=== PATIENT | male | born 1960 | race Caucasian/White ===

== ENCOUNTER 2017-03-11 07:06 | Emergency (ER) | payer OTHER ==
[2017-03-11] MEDS ORDERED: KETOROLAC TROMETHAMINE 30 MG/1 ML VIAL IVPUSH ONE (07:10)
[2017-03-11] MEDS ORDERED: SODIUM CHLORIDE 1,000 ML IV STA (07:10)
--- NOTE | 2017-03-11 07:14 | PDOC ---
History of Present Illness - General Chief Complaint: Pain, Acute Stated Complaint: R SIDED BACK AND FLANK PAIN Time Seen by Provider: 03/11/17 07:08 History Source: Patient, Significant Other Exam Limitations: No Limitations - History of Present Illness Initial Comments: 56 yo M history kidney stones presents with abrupt onset severe R flank pain. Pain woke him from sleep. Pain is 10/10, colicky, sharp, intermittent. Currently in 10/10 pain, having difficulty speaking due to pain (significant other gave history). Worse than prior kidney stone. Past History - Past Medical History Allergies/Adverse Reactions: Allergies Allergy/AdvReac Type Severity Reaction Status Date / Time No Known Allergies Allergy Verified 03/11/17 07:07 Home Medications: Ambulatory Orders Ibuprofen [Motrin -] 600 mg PO TID PRN #21 tablet 03/11/17 Oxycodone HCl/Acetaminophen [Percocet 5-325 mg Tablet] 1 - 2 tab PO Q6H PRN #20 tablet MDD 8 tabs 03/11/17 - Immunization History Td Vaccination: Yes - Psycho/Social/Smoking Cessation Hx Anxiety: No Suicidal Ideation: No Smoking Status: No Smoking History: Never smoked Number of Cigarettes Smoked Daily: 0 Cigars Per Day: 0 Review of Systems - Review of Systems Able to Perform ROS?: Yes Comments:: GENERAL/CONSTITUTIONAL: No fever or chills. No weakness. HEAD, EYES, EARS, NOSE AND THROAT: No change in vision. No ear pain or discharge. No sore throat. CARDIOVASCULAR: No chest pain or shortness of breath. RESPIRATORY: No cough, wheezing, or hemoptysis. GASTROINTESTINAL: No nausea, vomiting, diarrhea or constipation. GENITOURINARY: No dysuria, frequency, or change in urination. MUSCULOSKELETAL: No joint or muscle swelling or pain. No neck pain. +R low back/ flank pain. SKIN: No rash NEUROLOGIC: No headache, vertigo, loss of consciousness, or change in strength/ sensation. ENDOCRINE: No increased thirst. No abnormal weight change. HEMATOLOGIC/LYMPHATIC: No anemia, easy bleeding, or history of blood clots. ALLERGIC/IMMUNOLOGIC: No hives or skin allergy. *Physical Exam - Physical Exam Comments: GENERAL: Awake, alert, in obvious pain. Doubled over. HEAD: No signs of trauma EYES: PERRLA, EOMI, sclera anicteric, conjunctiva clear ENT: Auricles normal inspection, hearing grossly normal, nares patent, oropharynx clear without exudates. Moist mucosa NECK: Normal ROM, supple, no lymphadenopathy, JVD, or masses LUNGS: Breath sounds equal, clear to auscultation bilaterally. No wheezes, and no crackles HEART: Regular rate and rhythm, normal S1 and S2, no murmurs, rubs or gallops ABDOMEN: Soft, nontender, normoactive bowel sounds. No guarding, no rebound. No masses. No CVAT. EXTREMITIES: Normal range of motion, no edema. No clubbing or cyanosis. No cords , erythema, or tenderness NEUROLOGICAL: Cranial nerves II through XII grossly intact. Normal speech, normal gait SKIN: Warm, Dry, normal turgor, no rashes or lesions noted. ED Treatment Course - LABORATORY CBC & Chemistry Diagram: 03/11/17 07:24 03/11/17 07:24 Medical Decision Making - Medical Decision Making 03/11/17 09:14 Pt comfortable in bed, tolerating liquids PO. CT results reviewed with him. While he is much more comfortable at present, I am concerned that the pain may return, and he required a significant amount of pain medication. Will observe in ED for 1-2 hours. If pain does not return, will DC home. If it does, will admit. 03/11/17 10:22 Offered PO challenge. Will cont to monitor. 03/11/17 10:41 Tolerated crackers and water PO. Will DC home. Counseled him that the pain may return, and if so, to return to the ED. *DC/Admit/Observation/Transfer Diagnosis at time of Disposition: Kidney stone - Discharge Dispostion Disposition: HOME Condition at time of disposition: Stable Admit: No - Prescriptions Prescriptions: Ibuprofen [Motrin -] 600 mg PO TID PRN #21 tablet PRN Reason: Pain Oxycodone HCl/Acetaminophen [Percocet 5-325 mg Tablet] 1 - 2 tab PO Q6H PRN #20 tablet MDD 8 tabs PRN Reason: Severe Pain - Referrals Referrals: Jax Pruett MD [Staff Physician] - - Patient Instructions Printed Discharge Instructions: DI for Kidney Stones
[2017-03-11] MEDS ORDERED: ONDANSETRON 4 MG/2 ML VIAL IVPUSH ONE ×2 (07:15→07:44)
[2017-03-11] MEDS ORDERED: morphine CARPU-JECT 4 MG/1 ML DISP.SYRIN IVPUSH ONE ×2 (07:15→07:44)
[2017-03-11 07:22] VITALS: BMI 21.5
[2017-03-11 07:33] VITALS: TEMP 97.6
[2017-03-11] MEDS ORDERED: morphine CARPU-JECT 4 MG/1 ML DISP.SYRIN ONE (07:42)
[2017-03-11 08:22] LABS: ALBUMIN 4.3 g/dl (3.4-5.0); ANION GAP 7 (8-16); BILIRUBIN,TOTAL 0.7 mg/dL (0.2-1.0); CALCIUM 8.8 mg/dL (8.5-10.1); CO2 27 mmol/L (21-32); CREATININE 0.9 mg/dL (0.7-1.3); GLUCOSE,RANDOM 103 mg/dL (74-106); SGOT/AST 17 U/L (15-37); SGPT/ALT 27 U/L (12-78); TOT PROT 7.1 g/dl (6.4-8.2)
[2017-03-11 08:23] LABS: ALK PHOS 57 U/L (45-117)
[2017-03-11 08:24] LABS: PH,URINE 7.5 (4.5-8); URINE APPEARANCE Slightly; URINE BILIRUBIN Negative (NEGATIVE); URINE GLUCOSE (UA) Negative (NEGATIVE); URINE KETONE 2+ (NEGATIVE); URINE LEUK ESTERASE Negative (NEGATIVE); URINE NITRITE Negative (NEGATIVE); URINE UROBILINOGEN 0.2 (0.2-1.0)
[2017-03-11 08:25] LABS: URINE BLOOD 3+ (NEGATIVE); URINE COLOR YELLOW; URINE PROTEIN 1+ (NEGATIVE)
[2017-03-11 08:28] VITALS: PULSE 50
[2017-03-11 08:36] LABS: BASOPHIL 0.3 % (0-2.0); EOSINOPHIL 1.4 % (0-4.5); MCH 33.3 pg (25.7-33.7); MCHC 35.2 g/dl (32.0-35.9); MEAN CELL VOLUME 94.7 fl (80-96); MEAN PLT VOLUME 7.7 fl (7.5-11.1); NEUTROPHILS 54.1 % (42.8-82.8); PLATELET COUNT 203 K/MM3 (134-434); RDW 13.1 % (11.9-15.9); WHITE BLOOD COUNT 5.1 K/mm3 (4.0-10.0)
[2017-03-11 08:46] LABS: URINE BACTERIA NONE SEEN /hpf (NEGATIVE); URINE RBC 20-30 /hpf (0-3); URINE WBC 0-2 (3-5)
[2017-03-11 10:30] VITALS: BP 128/79
== END 2017-03-11 11:00 | disposition home or self-care (01) ==
LOC: FER 07:06
PROC: 3E0333Z Introduction of Anti-inflammatory into Peripheral Vein, Percutaneous Approach (ICD-10-PCS; principal; 2017-03-11)
PROC: 3E033NZ Introduction of Analgesics, Hypnotics, Sedatives into Peripheral Vein, Percutaneous Approach (ICD-10-PCS; 2017-03-11)
PROC: 3E033GC Introduction of Other Therapeutic Substance into Peripheral Vein, Percutaneous Approach (ICD-10-PCS; 2017-03-11)
PROC: 3E0337Z Introduction of Electrolytic and Water Balance Substance into Peripheral Vein, Percutaneous Approach (ICD-10-PCS; 2017-03-11)
DX: N23 Unspecified renal colic (principal)
CPT/HCPCS: 36415; 74176; 80053; 81003; 81015; 85025; 99285-25

== ENCOUNTER 2017-04-06 17:20 | Emergency (ER) | payer OTHER ==
[2017-04-06 17:31] VITALS: BP 122/80; PULSE 56; TEMP 98.1; BMI 22.1
--- NOTE | 2017-04-06 17:35 | PDOC ---
History of Present Illness - History of Present Illness Initial Comments: 04/06/17 17:55 56 M with a PMHx of kidney stones presents to the ED with sharp right flank pain and RLQ pain. Patient reports he has multiple kidney stones, and he had lithotripsy done yesterday. Prior to the procedure, he would experience right sided pain every 3 days. Since yesterday after the procedure he has had intermittent episodes of severe, sharp pain in the right flank and RLQ regions. He reports the episodes occur about every 20 minutes and they last for about 20- 30 minutes. He reports associated nausea and vomiting. He came to the ED recently for similar pain due to kidney stones and was prescribed oxycodone. He has some left over and has been taking them as needed, with no relief. Patient denies dysuria, hematuria. He denies chest pain, SOB. He denies diarrhea, constipation. <Denisha Ugalde - Last Filed: 04/06/17 19:44> <Jhon Espinosa - Last Filed: 04/07/17 09:03> - General Chief Complaint: Pain, Acute Stated Complaint: FLANK PAIN Time Seen by Provider: 04/06/17 17:34 Past History <Denisha Ugalde - Last Filed: 04/06/17 19:44> - Past Medical History Disorders: Yes (KIDNEY STONES) Kidney Stones: Yes - Immunization History Td Vaccination: Yes - Psycho/Social/Smoking Cessation Hx Anxiety: No Suicidal Ideation: No Smoking Status: No Smoking History: Never smoked Number of Cigarettes Smoked Daily: 0 Cigars Per Day: 0 Information on smoking cessation initiated: No Hx Alcohol Use: No Drug/Substance Use Hx: No Substance Use Type: None <Jhon Espinosa - Last Filed: 04/07/17 09:03> - Past Medical History Allergies/Adverse Reactions: Allergies Allergy/AdvReac Type Severity Reaction Status Date / Time No Known Allergies Allergy Verified 04/06/17 17:24 Home Medications: Ambulatory Orders Oxycodone HCl/Acetaminophen [Percocet 5-325 mg Tablet] 1 - 2 tab PO Q6H PRN #20 tablet MDD 8 tabs 03/11/17 Review of Systems - Review of Systems Comments:: 04/06/17 17:55 CONSTITUTIONAL: Absent: fever, chills, fatigue EYES: Absent: visual changes ENT: Absent: ear pain, sore throat CARDIOVASCULAR: Absent: chest pain, palpitations RESPIRATORY: Absent: cough, SOB GI: (+) RLQ pain, nausea, vomiting. Absent: constipation, diarrhea GENITOURINARY: (+) right flank pain. Absent: dysuria, frequency, hematuria MUSCULOSKELETAL: Absent: back pain, arthralgia, myalgia SKIN: Absent: rash NEURO: Absent: headache <Vilma Ugaldeobhan Alexis - Last Filed: 04/06/17 19:44> *Physical Exam - Vital Signs Last Vital Signs Temp Pulse Resp BP Pulse Ox 98.1 F 56 L 20 122/80 100 04/06/17 17:22 04/06/17 17:22 04/06/17 17:22 04/06/17 17:22 04/06/17 17:22 - Physical Exam Comments: 04/06/17 18:50 GENERAL: Well-appearing, well-nourished. No apparent distress. HEENT: Normocephalic, atraumatic. PERRL, EOM intact. CARDIOVASCULAR: Normal S1, S2. Regular rate and rhythm. PULMONARY: Clear to auscultation bilaterally. ABDOMEN: Soft, non-distended, normal BS. He indicates pain in right flank radiating to right groin, but there is no CVA tenderness, No abdominal tenderness to palpation. No hernias are palpable. There is no swelling or tenderness of the testicles. EXTREMITIES: Normal ROM in all four extremities. No gross deformities. SKIN: Warm, dry. No rash NEUROLOGICAL: No focal neurological deficits. <Vilma Ugaldeobhan Alexis - Last Filed: 04/06/17 19:44> - Vital Signs Last Vital Signs Temp Pulse Resp BP Pulse Ox 98.1 F 56 L 20 122/80 100 04/06/17 17:22 04/06/17 17:22 04/06/17 17:22 04/06/17 17:22 04/06/17 17:22 <Jhon Espinosa - Last Filed: 04/07/17 09:03> ED Treatment Course - LABORATORY CBC & Chemistry Diagram: 04/06/17 17:45 04/06/17 17:45 - ADDITIONAL ORDERS Additional order review: Laboratory Results 04/06/17 17:35 Urine Color Yellow Urine Appearance Clear Urine pH 7.0 Ur Specific [place] 1.010 Urine Protein Negative Urine Glucose (UA) Negative Urine Ketones 2+ H Urine Blood Trace-intact H Urine Nitrite Negative Urine Bilirubin Negative Urine Urobilinogen 0.2 Ur Leukocyte Esterase Negative - RADIOLOGY Radiograph Interpretation: 04/06/17 19:[address]: Reported by Dr. Binh Amos Impression: A 3 mm distal right ureteral calculus as discussed with associated hydronephrosis which is probably mild to moderate. Small bilateral nonobstructing calculi are again noted. Mild to moderate fluid-filled gastric distension is seen - ? recent fluid digestion. There is equivocal focal wall thickening along the greater curvature of the stomach at the approximate junction of the body and the antrum. Correlation with nonemergent follow up CT with optimal oral contrast opacification of the stomach is suggested for further evaluation. - Medications Given in the ED: ED Medications Discontinued Medications Generic Name Dose Route Start Last Admin Trade Name Freq PRN Reason Stop Dose Admin Ketorolac Tromethamine 30 mg 04/06/17 17:36 04/06/17 17:49 Toradol Injection - IVPUSH 04/06/17 17:37 30 mg ONCE ONE Administration Ondansetron HCl 4 mg 04/06/17 17:43 04/06/17 17:49 Zofran Injection IVPB 04/06/17 17:44 4 mg ONCE ONE Administration Tamsulosin HCl 0.4 mg 04/06/17 17:43 04/06/17 17:48 Flomax - PO 04/06/17 17:44 0.4 mg ONCE ONE Administration <Denisha Ugalde - Last Filed: 04/06/17 19:44> - LABORATORY CBC & Chemistry Diagram: 04/06/17 17:45 04/06/17 17:45 <Jhon Espinosa - Last Filed: 04/07/17 09:03> Medical Decision Making - Medical Decision Making 04/06/17 18:31 Temporary relief of pain, now pain has recurred, severe. Nausea vomiting has not recurred. Morphine administered. Patient's pain has subsided. Awaiting CT scan to assess degree of obstruction. Signed out to Dr. Menon [address] scan, further medical evaluation. 04/06/17 18:37 04/07/17 09:03 <Jhon Espinosa - Last Filed: 04/07/17 09:03> *DC/Admit/Observation/Transfer - Attestations Scribe Attestion: 04/06/17 17:56 Documentation prepared by Denisha Ugalde, acting as medical chief technician for Jhon Barrera MD. <Denisha Ugalde - Last Filed: 04/06/17 19:44> <Jhon Espinosa - Last Filed: 04/07/17 09:03> Diagnosis at time of Disposition: Kidney stone - Discharge Dispostion Disposition: HOME Condition at time of disposition: Improved - Patient Instructions Additional Instructions: Continue all your medications as prescribed if needed you can take up to 2 of your pain medications every 4 hours. Make sure you stay well hydrated. Follow-up with your urologist early next week make sure you take copies of her CAT scan and blood work with you when you go. Return to the emergency department immediately with ANY new, persistent or worsening symptoms. Continue any medications as previously prescribed by your physician. You should follow up with your primary doctor as soon as possible regarding today's emergency department visit. . Please make sure your doctor reviews the results of your emergency evaluation. Thank you for coming to the Emergency Department today for your care. It was a pleasure to see you today. Please note that your evaluation is INCOMPLETE until you follow-up with your doctor.
[2017-04-06] MEDS ORDERED: KETOROLAC TROMETHAMINE 30 MG/1 ML VIAL IVPUSH ONE (17:36)
[2017-04-06] MEDS ORDERED: SODIUM CHLORIDE 1,000 ML IV STA ×2 (17:36→18:50)
[2017-04-06] MEDS ORDERED: KETOROLAC TROMETHAMINE 30 MG/1 ML VIAL ONE (17:41)
[2017-04-06] MEDS ORDERED: ONDANSETRON 4 MG/2 ML VIAL IVPB ONE (17:43)
[2017-04-06] MEDS ORDERED: TAMSULOSIN HCL 0.4 MG CAP.ER.24H (FP) PO ONE (17:43)
[2017-04-06] MEDS ORDERED: TAMSULOSIN HCL 0.4 MG CAP.ER.24H (FP) ONE (17:44)
[2017-04-06] MEDS ORDERED: ONDANSETRON 4 MG/2 ML VIAL ONE (17:44)
[2017-04-06 17:46] LABS: URINE APPEARANCE Clear; URINE BILIRUBIN Negative (NEGATIVE); URINE GLUCOSE (UA) Negative (NEGATIVE); URINE KETONE 2+ (NEGATIVE); URINE LEUK ESTERASE Negative (NEGATIVE); URINE NITRITE Negative (NEGATIVE); URINE PROTEIN Negative (NEGATIVE); URINE UROBILINOGEN 0.2 (0.2-1.0)
[2017-04-06 17:47] LABS: URINE BLOOD Trace-intact (NEGATIVE); URINE COLOR YELLOW
[2017-04-06 18:09] LABS: BASOPHIL 1.4 % (0-2.0); EOSINOPHIL 0.3 % (0-4.5); MCH 32.1 pg (25.7-33.7); MCHC 35.2 g/dl (32.0-35.9); MEAN CELL VOLUME 91.3 fl (80-96); MEAN PLT VOLUME 7.5 fl (7.5-11.1); NEUTROPHILS 83.5 % (42.8-82.8); PLATELET COUNT 209 K/MM3 (134-434); RDW 12.1 % (11.9-15.9); WHITE BLOOD COUNT 8.4 K/mm3 (4.0-10.8)
[2017-04-06 18:12] LABS: ALBUMIN 4.6 g/dl (3.5-5.0); ALK PHOS 53 U/L (32-92); ANION GAP 7 (8-16); CALCIUM 8.9 mg/dl (8.4-10.2); CO2 24 mmol/L (22-28); CREATININE 1.4 mg/dl (0.6-1.3); GLUCOSE,RANDOM 109 mg/dl (74-106); SGOT/AST 24 U/L (10-42); SGPT/ALT 24 U/L (10-40); TOT PROT 6.8 g/dl (6.4-8.3)
[2017-04-06] MEDS ORDERED: morphine CARPU-JECT 4 MG/1 ML DISP.SYRIN IVPUSH ONE (18:30)
[2017-04-06] MEDS ORDERED: morphine CARPU-JECT 4 MG/1 ML DISP.SYRIN ONE (18:31)
[2017-04-06 18:34] LABS: URINE WBC 0-1 (3-5)
[2017-04-06 18:35] LABS: URINE BACTERIA NONE SEEN /hpf (NEGATIVE)
--- NOTE | 2017-04-06 19:24 | PDOC ---
*Physical Exam - Vital Signs Last Vital Signs Temp Pulse Resp BP Pulse Ox 98.1 F 56 L 20 122/80 100 04/06/17 17:22 04/06/17 17:22 04/06/17 17:22 04/06/17 17:22 04/06/17 17:22 ED Treatment Course - LABORATORY CBC & Chemistry Diagram: 04/06/17 17:45 04/06/17 17:45 - ADDITIONAL ORDERS Additional order review: Laboratory Results 04/06/17 04/06/17 17:45 17:35 Sodium 135 L Potassium 3.6 Chloride 104 Carbon Dioxide 24 Anion Gap 7 L BUN 15 Creatinine 1.4 H Creat Clearance w eGFR 52.81 Random Glucose 109 H Calcium 8.9 Total Bilirubin 1.0 AST 24 ALT 24 Alkaline Phosphatase 53 Total Protein 6.8 Albumin 4.6 Urine Color Yellow Urine Appearance Clear Urine pH 7.0 Ur Specific [place] 1.010 Urine Protein Negative Urine Glucose (UA) Negative Urine Ketones 2+ H Urine Blood Trace-intact H Urine Nitrite Negative Urine Bilirubin Negative Urine Urobilinogen 0.2 Ur Leukocyte Esterase Negative Urine RBC 2-3 Urine WBC 0-1 Urine Bacteria None seen 04/06/17 17:45 RBC 4.64 MCV 91.3 MCHC 35.2 RDW 12.1 MPV 7.5 Neutrophils % 83.5 H Lymphocytes % 7.6 L Monocytes % 7.2 Eosinophils % 0.3 Basophils % 1.4 - Medications Given in the ED: ED Medications Discontinued Medications Generic Name Dose Route Start Last Admin Trade Name Freq PRN Reason Stop Dose Admin Sodium Chloride 1,000 mls @ 1,000 mls/hr 04/06/17 17:36 04/06/17 17:50 Normal Saline - IV 04/06/17 18:35 1,000 mls/hr ASDIR STA Administration Ketorolac Tromethamine 30 mg 04/06/17 17:36 04/06/17 17:49 Toradol Injection - IVPUSH 04/06/17 17:37 30 mg ONCE ONE Administration Morphine Sulfate 4 mg 04/06/17 18:30 04/06/17 18:34 Morphine Injection - IVPUSH 04/06/17 18:31 4 mg ONCE ONE Administration Ondansetron HCl 4 mg 04/06/17 17:43 04/06/17 17:49 Zofran Injection IVPB 04/06/17 17:44 4 mg ONCE ONE Administration Tamsulosin HCl 0.4 mg 04/06/17 17:43 04/06/17 17:48 Flomax - PO 04/06/17 17:44 0.4 mg ONCE ONE Administration Progress Note - Progress Note Progress Note: Care of this patient was transferred to me from Dr. Woodard at 1900 hrs. This is a 56-year-old male who is status post lithotripsy yesterday. Patient came in today complaining of being unable to manage his pain. Patient has a workup in pending including CT scan to rule out obstruction. A review of patient's labs patient has a normal white count at this point and there is a slight left shift with 18 segs at 83%. Patient's creatinine is mildly elevated at 1.4 patient's creatinine from 1 month ago was 0.9. Patient's primary care doctor and urologist are all over at [place] so there is not a more recent creatinine prior to patient's lithotripsy. Reevaluation 1944 give her 600 Patient's pain is nearly resolved at this point he says he feels much better. A CAT scan that is back it shows a 3 mm stone less than 2 cm from the UVJ. Otherwise a mild amount of hydronephrosis and no other ureteral stones. Patient has oxycodone at home which she can take Patient discharged home given copies of his CAT scan as well as his blood work and will follow-up with his urologist *DC/Admit/Observation/Transfer Diagnosis at time of Disposition: Kidney stone - Discharge Dispostion Disposition: HOME Admit: No - Patient Instructions Additional Instructions: Continue all your medications as prescribed if needed you can take up to 2 of your pain medications every 4 hours. Make sure you stay well hydrated. Follow-up with your urologist early next week make sure you take copies of her CAT scan and blood work with you when you go. Return to the emergency department immediately with ANY new, persistent or worsening symptoms. Continue any medications as previously prescribed by your physician. You should follow up with your primary doctor as soon as possible regarding today's emergency department visit. . Please make sure your doctor reviews the results of your emergency evaluation. Thank you for coming to the Emergency Department today for your care. It was a pleasure to see you today. Please note that your evaluation is INCOMPLETE until you follow-up with your doctor.
== END 2017-04-06 19:51 | disposition home or self-care (01) ==
LOC: FER 17:20
PROC: 3E0333Z Introduction of Anti-inflammatory into Peripheral Vein, Percutaneous Approach (ICD-10-PCS; principal; 2017-04-06)
PROC: 3E033NZ Introduction of Analgesics, Hypnotics, Sedatives into Peripheral Vein, Percutaneous Approach (ICD-10-PCS; 2017-04-06)
PROC: 3E033GC Introduction of Other Therapeutic Substance into Peripheral Vein, Percutaneous Approach (ICD-10-PCS; 2017-04-06)
PROC: 3E0337Z Introduction of Electrolytic and Water Balance Substance into Peripheral Vein, Percutaneous Approach (ICD-10-PCS; 2017-04-06)
DX: N20.0 Calculus of kidney (principal)
CPT/HCPCS: 36415; 74176; 80053; 81003; 81015; 85025; 87086; 99283-25